=== PATIENT | male | born 1980 | race African-American/Black ===

== ENCOUNTER 2023-02-23 15:02 | Emergency (ER) | payer SELFPAY ==
[~2023-02-23] VITALS: Ht 167.6 cm; Wt 131.5 kg
[2023-02-23] MEDS ORDERED: NITROGLYCERIN 2% OINT 1 GM PKT ONE (16:00)
[2023-02-23] MEDS ORDERED: ASPIRIN 81 MG CHEW TAB PO ONE ×2 (16:00→17:15)
[2023-02-23] MEDS ORDERED: NITROGLYCERIN 2% OINT 1 GM PKT TOP ONE (16:00)
[2023-02-23 16:13] LABS: BASOPHILS # (AUTO) 0.1 (0.0-0.1); BASOPHILS % 0.8 % (0.0-1.0); EOSINOPHILS # (AUTO) 0.1 (0.0-0.4); EOSINOPHILS % 1.2 % (0.0-6.0); HEMATOCRIT 33.2 % (38.2-49.6); HEMOGLOBIN 10.6 g/dL (14.0-18.0); LYMPHOCYTES # (AUTO) 2.2 (1.0-3.2); MEAN CORPUSCULAR HEMOGLOBIN 26.4 pg (28-32); MEAN CORPUSCULAR HGB CONC 31.9 g/dL (31-35); MEAN CORPUSCULAR VOLUME 82.8 fL (81-99); MONOCYTES # (AUTO) 0.5 (0.2-0.8); MONOCYTES % 5.6 % (4.4-11.3); NEUTROPHILS # (AUTO) 6.3 (2.1-6.9); NEUTROPHILS % 68.2 % (38.7-80.0); PLATELET COUNT 503 x10e3/uL (140-360); RED BLOOD COUNT 4.01 x10e6/uL (4.3-5.7); RED CELL DISTRIBUTION WIDTH 16.2 % (11.7-14.4)
[2023-02-23] MEDS ORDERED: CLONIDINE HCL 0.1 MG TAB ONE (16:20)
[2023-02-23 16:23] LABS: INR 1.15; PROTHROMBIN TIME 15.2 seconds (11.9-14.5)
[2023-02-23 16:24] LABS: PARTIAL THROMBOPLASTIN TIME 33.9 seconds (23.8-35.5)
[2023-02-23] MEDS ORDERED: CLONIDINE HCL 0.1 MG TAB PO ONE (16:30)
[2023-02-23 16:36] LABS: ALBUMIN 3.7 g/dL (3.5-5.0); ALBUMIN/GLOBULIN RATIO 0.9 (0.8-2.0); ANION GAP 15.7 mmol/L (8-16); CALCIUM 9.6 mg/dL (8.4-10.2); CREATININE, SERUM 2.28 mg/dL (0.72-1.25); POTASSIUM 3.7 mmol/L (3.5-5.1)
[2023-02-23 16:42] LABS: CREATINE KINASE MB 5.7 ng/mL (0-5.0)
[2023-02-23] MEDS ORDERED: FUROSEMIDE INJ 10 MG/ML 4 ML VIAL IV ONE (17:15)
[2023-02-23] MEDS ORDERED: CLOPIDOGREL BISULFATE 75 MG TAB PO ONE (17:30)
[2023-02-23] MEDS ORDERED: HYDRALAZINE HCL 20 MG/ML VIAL IV STA (17:31)
[2023-02-23] MEDS ORDERED: NICARDIPINE 20MG/200ML PREMIX 200 ML IV SCH (18:00)
[2023-02-23 18:04] VITALS: BP 164/101; PULSE 111; RESP 18; TEMP 98.2
[2023-02-23 18:33] VITALS: O2SAT 98
== END 2023-02-23 18:31 | disposition other institution (70) ==
LOC: ER 15:22
DX: R06.02 Shortness of breath (principal); I21.4 Non-ST elevation (NSTEMI) myocardial infarction; I16.1 Hypertensive emergency; I10 Essential (primary) hypertension; I50.9 Heart failure, unspecified; N28.9 Disorder of kidney and ureter, unspecified; Z20.822 Contact with and (suspected) exposure to COVID-19; R94.31 Abnormal electrocardiogram [ECG] [EKG]
CPT/HCPCS: 0223U; 36415; 71045; 80053; 82550; 82553; 83880; 84484; 85025; 85610; 85730; 93005; 99284; J0360; J1940